=== PATIENT | male | born 1965 | race Caucasian/White ===

== ENCOUNTER 2020-01-31 12:24 | Emergency (ER) | payer BC, OTHER ==
[~2020-01-31] VITALS: Ht 187.9 cm; Wt 139.0 kg
[2020-01-31] MEDS ORDERED: LIDOCAINE 1% INJ 20 ML 20 ML VIAL ONE (12:32)
[2020-01-31] MEDS ORDERED: morphine INJ 10 MG/ML 1ML (SYR OR VIAL) IJ STA (12:38)
[2020-01-31] MEDS ORDERED: ONDANSETRON 4 MG (ZOFRAN) ORAL DISSOLVE TAB PO STA (12:38)
--- NOTE | 2020-01-31 12:57 | Diagnostic Imaging Report ---
INDICATION: Laceration to arm TECHNIQUE: 2 views of the left forearm. CORRELATION STUDY: None FINDINGS: There is a large soft tissue defect at the mid forearm. No definitive soft tissue foreign body. Radius and ulna are intact. Likely some degree of degenerative change of the elbow. IMPRESSION: 1. Negative for acute bony abnormality of the forearm. 2. Large soft tissue defect at the mid forearm. No radiographic evidence for soft tissue foreign body. Dictated by: Dictated on workstation # [id number]
[2020-01-31] MEDS ORDERED: LIDOCAINE/EPI 2% 1:100,00 (XYLOCAINE) 20 ML VIAL ONE (13:15)
[2020-01-31] MEDS ORDERED: LIDOCAINE PF 1% 5 ML (XYLOCAINE) AMP INJ ONE (13:15)
[2020-01-31] MEDS ORDERED: LIDOCAINE/EPI 2% 1:100,00 (XYLOCAINE) 20 ML VIAL INJ ONE (13:30)
--- NOTE | 2020-01-31 13:42 | ED Upper Extremity ---
General Chief Complaint: Laceration Stated Complaint: LEFT ARM GAS Nursing Triage Note: Patient presents to the ED with c/o left forearm laceration. He states that he was working on an engine trying to get a cylinder off when it unattached and flew into his arm causing a laceration to his left forearm. Nursing Sepsis Screen: No Definite Risk Source: patient Exam Limitations: no limitations History of Present Illness Date Seen by Provider: Jan 31, 2020 Time Seen by Provider: 13:00 Initial Comments Patient is a 54-year-old right-handed male who presents with left forearm injury after being struck in the arm with form implement. Patient has an 8 cm chevron shaped full-thickness laceration with exposed subcutaneous tissue. Wound is clean, bleeding is controlled. Injury occurred just prior to ED arrival. No other symptoms or complaints. Tetanus is been updated within the past 10 years. Onset: just prior to arrival Pain/Injury Location: left forearm Method of Injury: direct blow Allergies and Home Medications Allergies Uncoded Allergies: sulfa (Allergy, Unknown, 01/31/20) Patient Home Medication List Home Medication List Reviewed: Yes Review of Systems Constitutional: no symptoms reported EENTM: no symptoms reported Respiratory: no symptoms reported Cardiovascular: no symptoms reported Gastrointestinal: no symptoms reported Genitourinary: no symptoms reported Musculoskeletal: see HPI Skin: see HPI Past Tfolabl-Flofei-Hlyqvx Hx Past Med/Social Hx: Reviewed Nursing Past Med/Soc Hx Patient Social History Alcohol Use: Denies Use Recreational Drug Use: No Smoking Status: Never a Smoker 2nd Hand Smoke Exposure: No Recent Foreign Travel: No Contact w/Someone Who Travel: No Recent Infectious Disease Expo: No Recent Hopitalizations: No Physical Abuse: No Sexual Abuse: No Mistreated: No Fear: No Immunizations Up To Date Tetanus Booster (TDap): Less than 5yrs Seasonal Allergies Seasonal Allergies: No Past Medical History Abdominal, Gallbladder, Thyroidectomy Respiratory: No Cardiac: Yes Hypertension Neurological: No Genitourinary: No Gastrointestinal: No Musculoskeletal: No Endocrine: Yes Diabetes, Non-Insulin dep HEENT: No Cancer: No Psychosocial: Yes Anxiety, Depression Integumentary: No Blood Disorders: No Physical Exam Vital Signs Vital Signs - First Documented 01/31/20 12:30 Temp 35.9 Pulse 81 Resp 16 B/P (MAP) 164/84 (110) Pulse Ox 98 O2 Delivery Room Air Capillary Refill : Less Than 3 Seconds Height, Weight, BMI Height: '" Weight: lbs. oz. kg; 39.00 BMI Method: General Appearance: no apparent distress HEENT: PERRL/EOMI Neck: full range of motion Respiratory: lungs clear Elbow/Forearm: soft tissue tenderness (8 cm chevron shaped full-thickness laceration with exposed subcutaneous tissue left mid forearm, extensor surface. Bleeding controlled. Wound is clean), swelling Neurologic/Tendon: normal sensation, normal motor functions, normal tendon fun ctions Procedures/Interventions Wound Location: Upper Extremities Other Wound Location Left mid forearm, Wound's Depth, Shape: sub Q Wound Explored: clean Anesthesia: Lidocaine w/ Epi Wound Debrided: minimal Staple Repair: Stapler 35W (12) Layer Closure?: 1 Wound cleanse closed and bandaged. Will place on course of antibiotics with instructions first staple removal and 12 days. Typical wound care instructions provided. Return precautions reviewed. Progress/Results/Core Measures Results/Orders My Orders Orders - DANIEL BHANDARI DO Lidocaine 1% Inj 20 Ml (Xylocaine 1% Inj (01/31/20 12:32) Forearm 2 View Left (01/31/20 12:33) Morphine Injection (Morphine Injection (01/31/20 12:38) Ondansetron Oral Dissolve Tab (Zofran (01/31/20 12:38) Lidocaine/Epi 2% 1:100,000 (Xylocaine/Ep (01/31/20 13:15) Lidocaine/Epi 2% 1:100,000 (Xylocaine/Ep (01/31/20 13:30) Vital Signs/I&O 01/31/20 12:30 Temp 35.9 Pulse 81 Resp 16 B/P (MAP) 164/84 (110) Pulse Ox 98 O2 Delivery Room Air Blood Pressure Mean: 110 Departure Communication (Admissions) Wound cleansed and closed and bandaged. Impression Primary Impression: Laceration of left forearm Disposition: HOME, SELF-CARE Condition: Stable Departure-Patient Inst. Patient Instructions: Laceration Repair With Deacon (DC) Add. Discharge Instructions: Please keep wound clean current trying covered. Take ibuprofen or Tylenol for pain and antibiotics as directed. Follow-up with your PCP your local health care provider in 12 days for staple removal or sooner if signs of infection All discharge instructions reviewed with patient and/or family. Voiced understanding. Scripts Cephalexin (Keflex) 500 Mg Capsule 500 MG PO TID, #15 CAP Prov: DANIEL BHANDARI DO 01/31/20 DANIEL BHANDARI DO Jan 31, 2020 13:42
[2020-01-31] MEDS ORDERED: CEPH-507 PO (13:43)
[2020-01-31 13:48] VITALS: BP 156/79
== END 2020-01-31 13:48 | disposition home or self-care (01) ==
LOC: ER FS 12:27
DX: S51.812A Laceration without foreign body of left forearm, initial encounter (principal); Z88.2 Allergy status to sulfonamides; W22.8XXA Striking against or struck by other objects, initial encounter